=== PATIENT | female | born 1990 | race Caucasian/White ===

== ENCOUNTER 2016-12-05 17:19 | Observation (INO) | payer OTHER ==
[2016-12-05] MEDS ORDERED: Fentanyl 100 MCG/2 ML VIAL ONE (17:34)
[2016-12-05 17:50] LABS: #Basophils 0.1 thou/uL (0.0-0.2); #Eosinphils 0.2 thou/uL (0.0-0.7); #Lymphocytes 3.4 thou/uL (1.20-3.40); #Monocytes 0.7 thou/uL (0.11-0.59); %Basophils 0.6 % (0.0-1.0); %Eosinophils 1.1 % (0.0-10.0); %Lymphocytes 25.6 % (21.0-51.0); %Monocytes 5.1 % (0.0-10.0); Hematocrit 40.6 % (36.0-47.0); Mean Platelet Volume 8.5 fL (7.4-10.4); Red Blood Cell (RBC) Count 4.35 mill/uL (4.20-5.40); White Blood Cell (WBC) Count 13.3 thou/uL (4.8-10.8)
[2016-12-05 18:17] LABS: ALT (SGPT) 18 U/L (8-55); AST (SGOT) 23 U/L (5-34); Alkaline Phosphatase 65 U/L (40-150); Anion Gap 15 mmol/L (10-20); BUN (Urea Nitrogen) 18 mg/dL (7.0-18.7); Bilirubin, Total 0.3 mg/dL (0.2-1.2); Calc. Creatinine Clearance 0 mL/min (70-130); Calcium 9.3 mg/dL (7.8-10.44); Carbon Dioxide 18 mmol/L (22-29); Chloride 106 mmol/L (98-107); Estimated GFR-MDRD Greater than 90; Globulin 3.5 g/dL (2.4-3.5); Protein, Total 7.9 g/dL (6.0-8.3)
[2016-12-05] MEDS ORDERED: Ondansetron HCl/PF 4 MG/2 ML Vial IVP PRN (20:27)
--- NOTE | 2016-12-05 20:39 | ULT ---
PELVIC ULTRASOUND WITH ZALDIVAR SCALE AND DOPPLER COLOR FLOW IMAGING TRANSABDOMINAL AND TRANSVAGINAL PELVIC ULTRASOUND PERFORMED WITH DOPPLER COLOR FLOW AND ZALDIVAR SCALE I MAGING. SPECTRAL ANALYSIS PERFORMED. 12/05/16 CLINICAL HISTORY: Pelvic pain. FINDINGS: There is a focal region of altered echotexture of the right adnexal region measuring slightly greate r than 2 cm in diameter. There is thickening of the endometrium. Free pelvic fluid is present. Doppl er assessment reveals flow to each ovary. Dominant appearing cyst of the left adnexa is seen. IMPRESSION: Complex focus of echotexture within the right adnexa. There is endometrial prominence. The possibili ty of ectopic is not excluded in light of the absent intrauterine gestation. Recommend cli nical correlation, beta HCG value assessment as well as imaging followup. Nonspecific free pelvic fluid. Dominant cystic structure of the left adnexa. Code T POS: [facility]
[2016-12-05 20:45] LABS: Hematocrit 35.3 % (36.0-47.0); Mean Platelet Volume 8.1 fL (7.4-10.4); Red Blood Cell (RBC) Count 3.77 mill/uL (4.20-5.40); White Blood Cell (WBC) Count 12.2 thou/uL (4.8-10.8)
[2016-12-05] MEDS: Lactated Ringer's 1,000 ML IV SCH (21:49)
[2016-12-05 22:23] VITALS: BMI 28.0
--- NOTE | 2016-12-06 01:53 | HP ---
DATE OF ADMISSION: 12/05/2016 CHIEF COMPLAINT: Abdominal pain in the presence of ectopic , status post methotrexate. HISTORY OF PRESENT ILLNESS: The patient is a 25-year-old female, who was diagnosed with an ectopic yesterday at an outside facility, and was given methotrexate by her primary OB in the [facility], at an outside facility. Patient came to the town with a family member and began having abdominal pain today. This started about 5:00. The patient reports that the pain feels like really bad gas on the right side. She was given 100 mcg of fentanyl and has all but it resolved her pain. Patient denies any reports of nausea and had some loose stools today. She denies any chest pain, shortness of breath, fever, cough, rash, persistent pain, worsening pain, vaginal bleeding. PAST MEDICAL HISTORY: History of ovarian cysts. PAST SURGICAL HISTORY: None. PSYCHIATRIC HISTORY: Includes history of depression. SOCIAL HISTORY: Positive for tobacco; however, communicates she quit 2 weeks ago. Denies any alcohol or drug use. ALLERGIES: MORPHINE. REVIEW OF SYSTEMS: Per HPI. PHYSICAL EXAMINATION: VITAL SIGNS: Blood pressure 104/59, pulse of 82, respiratory rate of 20, temperature 98.1. GENERAL: At this time of my exam, the patient appears to be in no acute distress. She is alert and oriented, cooperative, and pleasant to interact with. HEAD: Normocephalic, atraumatic. LUNGS: Clear to auscultation bilaterally. HEART: Has a regular rate and rhythm. ABDOMEN: Soft. She does have some tenderness to palpation in the left lower quadrant and some in the right lower quadrant. EXTREMITIES: Nontender, nonedematous. LABORATORY DATA: White count is 12.2, hemoglobin is 12.3, hematocrit is 35.3, platelets of 202,000. Blood type is AB positive. A pelvic ultrasound, dominant cystic structure of the left adnexa, although nothing obvious. Beta hCG, the patient reports a quant level of 3000 yesterday. ASSESSMENT AND PLAN: The patient is a 25-year-old female, who presented with acute abdominal pain from 5:00 this evening. She has a diagnosis of ectopic and was given methotrexate yesterday at an outside facility. The patient does not appear to have any acute decompensation and has otherwise well- controlled pain on minimal pain medication. Given overall clinical picture and possibility of rupture, although unlikely, we will be bringing the patient in for observation and for serial exams. If the patient continues to have significant pain, we will repeat an ultrasound over the next several hours to verify whether there are signs of increasing fluid in the pelvis. If everything appears to be stable, she will be discharged by morning. The patient has been consented for diagnostic laparoscopy with possible salpingectomy versus salpingostomy in the event that we needed to go to surgery. This patient is n.p.o. MTDD
[2016-12-06] MEDS: Lactated Ringer's 1,000 ML IV SCH (05:42)
[2016-12-06] MEDS ORDERED: Acetaminophen/Codeine 30-300mg Tablet PO PRN ×2 (07:39)
[2016-12-06 07:52] VITALS: BP 92/51; TEMP 98.5
--- NOTE | 2016-12-06 08:24 | DIS ---
ADMITTING DIAGNOSES: 1. Ectopic . 2. Abdominal pain. 3. Status post Methotrexate x1 day. DISCHARGE DIAGNOSES: 1. Ectopic . 2. Abdominal pain. 3. Status post Methotrexate x1 day. PROCEDURES: None. CONSULTATIONS: None. HOSPITAL COURSE: The patient is a 25-year-old female who was recently diagnosed with an ectopic pre gnancy and treated with methotrexate a day prior to presentation. She came to the ER with abdominal pain and was admitted for observation to evaluate for signs or symptoms of ruptured ectopic. On ad mission, the patient had a stable and had normal vital signs with improving pain with the use of marlene n medicine. Over the course of the night, the patient received no additional pain medicine, in fact she slept through the night and by morning time, the patient reports that she is sore, but has impr ruchi pain. VITAL SIGNS: This morning blood pressure is 92/51, pulse 58, temperature 98.5, respiratory rate of 20. GENERAL: She appears to be in no acute distress. Her abdomen is soft with some soreness. EXTREMITIES: Nontender, nonedematous. The patient is being discharged home. She has instructions to keep her medical appointments with he r primary OB in the [facility] area as scheduled. She is scheduled at this time to follow up t omorrow for additional hCG testing.
[2016-12-06] MEDS ORDERED: FLU VACC QS2017-18 36 mo. & older 0.5 ML SYRINGE IM ONE (09:00)
== END 2016-12-06 08:50 | disposition home or self-care (01) ==
LOC: ERS 17:19 → 3SE 20:27
PROVIDERS: ADMIT Obstetrics & Gynecology; ATTEND Obstetrics & Gynecology
DX: O00.90 Unspecified ectopic pregnancy without intrauterine pregnancy (principal); F32.9 Major depressive disorder, single episode, unspecified; Z88.5 Allergy status to narcotic agent; Z79.899 Other long term (current) drug therapy; Z87.42 Personal history of other diseases of the female genital tract; Z87.891 Personal history of nicotine dependence
CPT/HCPCS: 36415; 76856; 80053; 84703; 85025; 86850; 86900; 86901; 90471; 90682; 96361; 96374; A4216; G0008; G0378; J3010; Q2036

== ENCOUNTER 2016-12-23 02:46 | Day surgery (SDC) | payer OTHER ==
[2016-12-23] MEDS ORDERED: Fentanyl 100 MCG/2 ML VIAL ONE ×4 (03:08→15:13)
[2016-12-23 04:26] LABS: #Lymphocytes 1.5 thou/uL (1.20-3.40); #Monocytes 0.5 thou/uL (0.11-0.59); #Neutrophils 9.4 thou/uL (1.40-6.50); %Basophils 0.2 % (0.0-1.0); %Eosinophils 0.4 % (0.0-10.0); %Lymphocytes 13.1 % (21.0-51.0); %Monocytes 4.2 % (0.0-10.0); Hematocrit 36.1 % (36.0-47.0); Mean Platelet Volume 7.8 fL (7.4-10.4); Red Blood Cell (RBC) Count 3.85 mill/uL (4.20-5.40); White Blood Cell (WBC) Count 11.5 thou/uL (4.8-10.8)
[2016-12-23 04:39] LABS: ALT (SGPT) 11 U/L (8-55); AST (SGOT) 10 U/L (5-34); Alkaline Phosphatase 69 U/L (40-150); Anion Gap 10 mmol/L (10-20); BUN (Urea Nitrogen) 14 mg/dL (7.0-18.7); Bilirubin, Total 0.2 mg/dL (0.2-1.2); Calc. Creatinine Clearance 0 mL/min (70-130); Calcium 8.3 mg/dL (7.8-10.44); Carbon Dioxide 21 mmol/L (22-29); Chloride 110 mmol/L (98-107); Estimated GFR-MDRD Greater than 90; Globulin 3.2 g/dL (2.4-3.5); Protein, Total 7.1 g/dL (6.0-8.3)
--- NOTE | 2016-12-23 09:26 | HP ---
DATE OF SERVICE: 12/23/2016 CHIEF COMPLAINT: Ectopic with worsening abdominal pain. HISTORY OF PRESENT ILLNESS: At the time of presentation, Ms. Lugo is a 26-year-old G2, P0 female with a known ectopic . The patient was first treated with methotrexate for the ectopic on 12/04/2016 when her quantitative HCG was approximately 6,000 by her cannery tender engineer in [place]. The rome rodriguez actually presented to [facility] on 12/05/2016 complaining of abdominal pain and was found to be hemodynamically stable with no signs of rupture, so was discharged home. The patient states that subsequent to that, she had elevation in her quantitative HCG and so received a second dose of methotrexate from her vamp presser in [place] on 12/12/2016. From there, patient had d ecrease in her quantitative HCG to 4,000 followed by 2,000 approximately 3-4 days ago. She states t hat she was feeling well on 12/22/2016 and fell approximately 1:00 a.m. in the morning on 12/23/2016 where she had sudden onset of severe lower abdominal pain. The patient does not localize it to a 5 . She says there was associated nausea, but no vomiting. She denies any fever or chills. She omid es any cardiovascular or respiratory complaints. She reports normal bowel movement for the last sev eral days with no diarrhea. She states did have some vaginal bleeding on 12/22/2016, whic h has since stopped. Due to the severe sudden pain, she came into the emergency department for furt her evaluation. I was called by the emergency room physician. At the time that I arrived in the room, patient state s that she passed gas and that her pain had subsequently gotten better. REVIEW OF SYSTEMS: Limited review of systems per HPI. PAST MEDICAL HISTORY: 1. Irritable bowel syndrome. 2. HPV. PAST SURGICAL HISTORY: Negative. OBSTETRIC HISTORY: The patient is a 2, para 0 with first being a spontaneous misc arriage. This second is her current and is an ectopic. GYNECOLOGIC HISTORY: HPV for which patient has not been treated. MEDICATIONS: None. ALLERGIES: MORPHINE causes swelling. The patient states that she tolerates fentanyl without any di fficulty. PHYSICAL EXAMINATION: VITAL SIGNS: Within normal limits. The patient is afebrile and normotensive. GENERAL: Well-appearing white female in no acute distress. HEENT: Normocephalic, atraumatic. LUNGS: Respirations are unlabored. CARDIOVASCULAR: Regular rate and rhythm. ABDOMEN: Mildly obese, soft, and minimally tender. No rebound, no guarding. GENITOURINARY: Deferred to exam under anesthesia. EXTREMITIES: Without cyanosis, clubbing or edema. NEUROLOGIC: Alert and oriented x3, no focal deficits. LABORATORY DATA AND IMAGING STUDIES: White blood cell count 11, hematocrit 36, and platelets 205,00 0. Sodium 137, potassium 3.9, BUN 14, creatinine 0.72, AST 10, ALT 11. Quantitative hCG 1023. Ultrasound formal read is still pending, but when compared to the ultrasound from 12/05/2016, there is interval increase in the amount of free fluid in the pelvis and very slight interval increase in the size of the right adnexal mass felt to be ectopic. ASSESSMENT AND PLAN: A 26-year-old 2, para 0 female with known ectopic , status po st treatment with methotrexate 2 doses on 12/04/2016 and 12/12/2016. The patient had onset of sudde n pain at approximately 01:00 and presented to the Emergency Department. At the time of my evaluati on, she is no longer having the severe pain and states that it resolves after she passed gas. Howev er, the patient still has soreness in the general pelvis and is also complaining of rectal pain. Th is is likely secondary to the free fluid that is noted in the pelvis on ultrasound. The patient sta lee that her gynecologic in [place] had also noted the interval increase in size of the right adnexa l mass and so plan was to go to the operating room for surgery tomorrow. Given the increase in free fluid in the pelvis, patient was given the option today of staying for observation, serial exam, re peat ultrasound and if stable, discharge home. If not, to the OR for salpingostomy versus salpingec xin. She was also given the option to proceed to the OR without period of observation for salpingo stomy or salpingectomy. The patient opted for the latter. The benefits and risks of salpingostomy versus salpingectomy were reviewed with the patient and she does opt for salpingectomy. Risks of campos rgery were reviewed and are bleeding, infection, injury to surrounding organs and tissues and approx imately 10% conversion rate to laparotomy. The patient and her had the opportunity to ask a nd have her questions answered to their satisfaction. We will plan to proceed to the operating room with Dr. Latham as surgeon for diagnostic laparoscopy and salpingectomy. The patient will receive Ancef 2 grams environmental designer to the OR.
[2016-12-23] MEDS ORDERED: Midazolam HCl 2 mg/2 ml Vial ONE (10:49)
[2016-12-23] MEDS ORDERED: Bupivacaine PF 0.5% 30 ML VIAL ONE (12:07)
[2016-12-23] MEDS ORDERED: Lidocaine 2% w/Epinephrine 1:200K 20 ML VIAL ONE (12:08)
--- NOTE | 2016-12-23 12:25 | ULT ---
PRELIMINARY REPORT/[facility]/EMERGENCY AFTER-HOURS PROCEDURE: EXAM: US , Transvaginal US Duplex Arterial/Venous of the Pelvis, Complete CLINICAL HISTORY: 26 years old, female; ectopic treated with methotrexate ; Pain; Other: Sudden onset of inc reased rlq pain; Gestational age or lmp: Na; ; TECHNIQUE: Real-time transvaginal obstetrical ultrasound of the maternal pelvis and a first trimester with image documentation. Transvaginal imaging was used for better evaluation of the fetus and adne xa. Real-time duplex ultrasound scan of the arterial and venous flow of the pelvis with color Doppler fl ow and spectral waveform analysis was also performed for evaluation of pelvic and ovarian blood flow . COMPARISON: Prior study and report are not available for my review. FINDINGS: Gestation: No intrauterine gestational sac visualized. Uterus/cervix: Unremarkable. No myometrial mass. Ovaries: Left ovarian probable corpus luteum. Otherwise ovaries are unremarkable. Normal arterial an d venous blood flow. No torsion. Other findings: Right adnexal/paraovarian heterogeneous mass measuring up to 4.5 cm. Right adnexal a nd cul-de-sac moderate free fluid. These are increased in size per storeroom attendant's note, although prio r images and report are not available for my review. IMPRESSION: Right adnexal/paraovarian heterogeneous mass concerning for ectopic and pelvic free fluid; these are increased in size per storeroom attendant's note as described above. Thank you for allowing us to participate in the care of your patient. Dictated and Authenticated by: Ancelmo Flowers MD 12/23/2016 4:39 AM Central Time ([place] \T\ [place]) FINAL REPORT ULTRASOUND PELVIC TRANSVAGINAL: HISTORY: Known ectopic, got methotrexate, right lower quadrant pain. COMPARISON: Pelvic ultrasound 12/05/16. FINDINGS: Findings and impression are concordant with the preliminary report. POS: [facility]
[2016-12-23] MEDS ORDERED: Ondansetron HCl/PF 4 MG/2 ML Vial ONE (14:15)
[2016-12-23] MEDS ORDERED: Meperidine HCl/PF 25 MG/ML VIAL ONE (14:25)
--- NOTE | 2016-12-23 21:27 | OP ---
DATE OF SERVICE: 12/23/2016 PREOPERATIVE DIAGNOSES: 1. Right-sided ectopic . 2. Status post methotrexate x2. POSTPROCEDURE DIAGNOSES: 1. Right-sided ectopic . 2. Status post methotrexate x2. 3. Left-sided tubal disease. PROCEDURE: Laparoscopic right salpingectomy. SURGEON: Bibi Latham M.D. MITERING MACHINE OPERATOR: Saskia Cuellar DO ANESTHESIA: General. COMPLICATIONS: None. ESTIMATED BLOOD LOSS: 10 mL FINDINGS: Normal appearing uterus and ovaries bilaterally. Right-sided ectopic with bloo d filled tube and a small area of bleeding. Left fallopian tube appeared clubbed with a distal hydr osalpinx and scarring normal appearing liver edge. DESCRIPTION OF PROCEDURE: The patient was taken to the operating room where general anesthesia was obtained without difficulty. She was prepared and draped in normal sterile fashion in the dorsal li thotomy position with [place]fin leg holders. A speculum was placed in the vagina and the single too th tenaculum was applied to the cervix. The speculum was removed and attention was returned to the abdomen. A 5 mm skin incision was made in the infraumbilical fold and the abdomen was insufflated w ith CO2 gas using a Veress needle. A camera was then inserted with 5 mm Visiport and intra-abdomina l placement was confirmed. A 5 mm port was placed in the left lower quadrant and a [address] d in the right lower quadrant under direct visualization. The above findings were noted. Upon exam ination of the abdomen, the right fallopian tube with the ectopic was removed with a LigaS ure device with good hemostasis. The specimen was removed with an Endobag. The left tube was left in place. Since the patient is nulliparous and no discussion was made prior in regard to what to do that tube was damaged. The instruments were removed from the abdomen. The fascia of the 12 mm por t was reapproximated with 0 Vicryl using a Vernon-Sissy device. Skin was closed with 4-0 Monocry l and Dermabond was applied. The patient tolerated the procedure well. Sponge, lap, and needle cou nts were correct x2. The patient was taken to the recovery room in stable condition.
== END 2016-12-24 16:14 | disposition home or self-care (01) ==
LOC: ERS 02:46 → SDC 14:00
PROVIDERS: ATTEND Obstetrics & Gynecology Obstetrics
PROC: 0UT54ZZ Resection of Right Fallopian Tube, Percutaneous Endoscopic Approach (ICD-10-PCS; principal; 2016-12-24)
DX: O00.90 Unspecified ectopic pregnancy without intrauterine pregnancy (principal); K58.9 Irritable bowel syndrome, unspecified; A63.0 Anogenital (venereal) warts; Z88.5 Allergy status to narcotic agent; Z87.891 Personal history of nicotine dependence; Z87.59 Personal history of other complications of pregnancy, childbirth and the puerperium
CPT/HCPCS: 36415; 76856; 86850; 86900; 86901; 88305; J2175; J2250; J2405; J3010; S0020

== ENCOUNTER 2017-02-11 12:03 | Emergency (ER) | payer OTHER ==
[2017-02-11 13:56] LABS: #Basophils 0.1 thou/uL (0.0-0.2); #Eosinphils 0.2 thou/uL (0.0-0.7); #Lymphocytes 2.7 thou/uL (1.20-3.40); #Monocytes 0.5 thou/uL (0.11-0.59); #Neutrophils 6.8 thou/uL (1.40-6.50); %Basophils 0.5 % (0.0-1.0); %Eosinophils 1.5 % (0.0-10.0); %Lymphocytes 26.6 % (21.0-51.0); %Monocytes 5.2 % (0.0-10.0); Hematocrit 41.7 % (36.0-47.0); Mean Platelet Volume 8.4 fL (7.4-10.4); Red Blood Cell (RBC) Count 4.49 mill/uL (4.20-5.40); White Blood Cell (WBC) Count 10.2 thou/uL (4.8-10.8)
[2017-02-11 15:26] LABS: ALT (SGPT) 16 U/L (8-55); AST (SGOT) 14 U/L (5-34); Alkaline Phosphatase 66 U/L (40-150); Anion Gap 11 mmol/L (10-20); BUN (Urea Nitrogen) 18 mg/dL (7.0-18.7); Bilirubin, Total 0.3 mg/dL (0.2-1.2); Calc. Creatinine Clearance 0 mL/min (70-130); Carbon Dioxide 25 mmol/L (22-29); Chloride 105 mmol/L (98-107); Estimated GFR-MDRD 87; Globulin 3.8 g/dL (2.4-3.5); Lipase 40 U/L (8-78); Protein, Total 8.4 g/dL (6.0-8.3)
== END 2017-02-11 15:41 | disposition home or self-care (01) ==
LOC: ERS 12:03
DX: N93.9 Abnormal uterine and vaginal bleeding, unspecified (principal); F90.9 Attention-deficit hyperactivity disorder, unspecified type; F32.9 Major depressive disorder, single episode, unspecified
CPT/HCPCS: 36415; 80053; 83690; 84703; 85025; 87480; 87491; 87510; 87591; 87660; 99284

== ENCOUNTER 2022-04-24 13:37 | Emergency (ER) | payer OTHER | END 2022-04-24 15:29 | disposition left against medical advice (07) | LOC: ERS 13:37 | DX: Z53.29 Procedure and treatment not carried out because of patient's decision for other reasons (principal) ==